=== PATIENT | male | born 1950 | race Native Hawaiian/Other Pacific Islander ===

== ENCOUNTER 2017-05-28 08:26 | Outpatient (CLI) | payer OTHER ==
[~2017-05-28 08:26] MED LIST: ACCUPRIL10 MG PO; AMBIEN5 MG PO; ASPIRIN325 M1 PO; LEVO0.0529 PO; LORA10TA3 PO; MEDROL DOSEPAK4 MG OR; SIMV10TA PO; VIAGRA100 MG PO; Z-PAK PO
[2017-05-28 09:05] LABS: PLATELET COUNT 220 K/uL (142-355)
[2017-05-28 09:52] LABS: SODIUM 135 mmol/L (136-145)
== END 2017-05-28 13:00 | disposition home or self-care (01) ==
LOC: LABW 08:26
PROVIDERS: Internal Medicine
DX: I10 Essential (primary) hypertension (principal); E03.8 Other specified hypothyroidism; E78.4 Other hyperlipidemia
CPT/HCPCS: 36415; 80053; 80061; 81000; 84439; 84443; 85027

== ENCOUNTER 2017-05-30 08:51 | Outpatient (CLI) | payer OTHER | END 2017-05-30 19:27 | disposition home or self-care (01) | LOC: US 08:51 | DX: I70.0 Atherosclerosis of aorta (principal); Z00.00 Encounter for general adult medical examination without abnormal findings ==

== ENCOUNTER 2018-03-15 10:05 | Outpatient (CLI) | payer OTHER | END 2018-03-15 19:45 | disposition home or self-care (01) | LOC: US 10:05 | DX: M79.89 Other specified soft tissue disorders (principal) ==

== ENCOUNTER 2018-07-12 06:51 | Emergency (ER) | payer OTHER ==
[~2018-07-12] VITALS: Ht 180.3 cm; Wt 108.9 kg
[2018-07-12 07:06] VITALS: TEMP 98.7
[2018-07-12 08:20] LABS: PLATELET COUNT 240 K/uL (142-355)
[2018-07-12 08:23] LABS: POTASSIUM 4.8 mmol/L (3.6-5.2)
[2018-07-12 10:35] VITALS: BP 136/88
== END 2018-07-12 10:35 | disposition home or self-care (01) ==
LOC: ED 06:51
PROVIDERS: Family Medicine
DX: N20.1 Calculus of ureter (principal)
CPT/HCPCS: 36415; 80053; 81000; 85027; 96374; 99284; J1885

== ENCOUNTER 2019-01-17 12:02 | Outpatient (CLI) | payer OTHER | END 2019-01-17 21:40 | disposition home or self-care (01) | LOC: RAD 12:02 | DX: M25.561 Pain in right knee (principal); M79.672 Pain in left foot ==

== ENCOUNTER 2019-04-08 08:18 | Outpatient (CLI) | payer OTHER | END 2019-04-08 23:59 | disposition home or self-care (01) | LOC: NM 08:18 | DX: R94.31 Abnormal electrocardiogram [ECG] [EKG] (principal); M17.0 Bilateral primary osteoarthritis of knee | CPT/HCPCS: A9500; J2785 ==

== ENCOUNTER 2019-07-02 10:53 | Emergency (ER) | payer OTHER ==
[~2019-07-02] VITALS: Ht 180.3 cm; Wt 106.6 kg
[2019-07-02 11:00] VITALS: TEMP 98.1
[2019-07-02 11:35] LABS: PLATELET COUNT 259 K/uL (142-355)
[2019-07-02 11:42] LABS: POTASSIUM 4.4 mmol/L (3.6-5.2)
[2019-07-02 12:52] VITALS: BP 135/71
== END 2019-07-02 12:52 | disposition home or self-care (01) ==
LOC: ED 10:53
PROVIDERS: Emergency Medicine
DX: R22.41 Localized swelling, mass and lump, right lower limb (principal); Z96.651 Presence of right artificial knee joint; Z79.82 Long term (current) use of aspirin; I82.401 Acute embolism and thrombosis of unspecified deep veins of right lower extremity
CPT/HCPCS: 80053; 85027; 85379; 99283; Q9963

== ENCOUNTER 2019-07-02 14:56 | Outpatient (CLI) | payer OTHER | END 2019-07-02 20:16 | disposition home or self-care (01) | LOC: CT 14:56 | DX: I82.401 Acute embolism and thrombosis of unspecified deep veins of right lower extremity (principal) | CPT/HCPCS: Q9963 ==

== ENCOUNTER 2020-01-15 13:45 | Outpatient (CLI) | payer OTHER ==
[2020-01-15 14:18] LABS: PLATELET COUNT 222 K/uL (142-355)
[2020-01-15 14:44] LABS: POTASSIUM 4.9 mmol/L (3.6-5.2)
== END 2020-01-15 22:25 | disposition home or self-care (01) ==
LOC: LAB 13:45
PROVIDERS: Internal Medicine
DX: E03.8 Other specified hypothyroidism (principal); I10 Essential (primary) hypertension
CPT/HCPCS: 80053; 80061; 81000; 84439; 84443; 85027

== ENCOUNTER 2021-05-10 09:36 | Outpatient (CLI) | payer OTHER ==
[2021-05-10 10:11] LABS: PLATELET COUNT 181 K/uL (142-355)
[2021-05-10 10:24] LABS: POTASSIUM 4.6 mmol/L (3.6-5.2)
== END 2021-05-10 19:10 | disposition home or self-care (01) ==
LOC: LABW 09:36
PROVIDERS: ATTEND Internal Medicine
DX: I10 Essential (primary) hypertension (principal)
CPT/HCPCS: 36415; 80053; 80061; 81000; 84439; 84443; 85027; 85379

== ENCOUNTER 2021-05-13 09:35 | Outpatient (CLI) | payer OTHER | END 2021-05-13 19:04 | disposition home or self-care (01) | LOC: US 09:35 | PROVIDERS: ATTEND Internal Medicine | DX: G45.9 Transient cerebral ischemic attack, unspecified (principal); R09.89 Other specified symptoms and signs involving the circulatory and respiratory systems ==

== ENCOUNTER 2021-07-13 10:14 | Outpatient (CLI) | payer OTHER | END 2021-07-13 20:20 | disposition home or self-care (01) | LOC: LABW 10:14 | PROVIDERS: ATTEND Specialist | DX: G62.89 Other specified polyneuropathies (principal); R42 Dizziness and giddiness | CPT/HCPCS: 36415; 82607; 82746; 85652; 86038 ==

== ENCOUNTER 2021-07-21 10:13 | Outpatient (CLI) | payer OTHER | END 2021-07-21 18:53 | disposition home or self-care (01) | LOC: RESP 10:13 | PROVIDERS: ATTEND Specialist | DX: G62.9 Polyneuropathy, unspecified (principal); R42 Dizziness and giddiness | CPT/HCPCS: 95885; 95910 ==

== ENCOUNTER 2022-10-09 09:13 | Outpatient (CLI) | payer OTHER | END 2022-10-09 18:56 | disposition home or self-care (01) | LOC: CT 09:13 | PROVIDERS: ATTEND Specialist | DX: R31.0 Gross hematuria (principal) ==

== ENCOUNTER 2022-11-01 11:24 | Emergency (ER) | payer OTHER ==
[~2022-11-01] VITALS: Ht 180.3 cm; Wt 83.9 kg
[2022-11-01 11:35] VITALS: BP 137/77; TEMP 98
== END 2022-11-01 14:11 | disposition home or self-care (01) ==
LOC: ED 11:24
DX: S42.032A Displaced fracture of lateral end of left clavicle, initial encounter for closed fracture (principal); W18.39XA Other fall on same level, initial encounter; Y93.K1 Activity, walking an animal; Y92.89 Other specified places as the place of occurrence of the external cause
CPT/HCPCS: 96372; 99282; J1885

== ENCOUNTER 2023-02-28 13:17 | Outpatient (CLI) | payer OTHER ==
[2023-02-28 14:33] LABS: PLATELET COUNT 202 K/uL (142-355)
[2023-02-28 14:57] LABS: POTASSIUM 5.3 mmol/L (3.6-5.2)
== END 2023-02-28 20:00 | disposition home or self-care (01) ==
LOC: LAB 13:17
PROVIDERS: ATTEND Internal Medicine
DX: Z00.00 Encounter for general adult medical examination without abnormal findings (principal); I10 Essential (primary) hypertension
CPT/HCPCS: 80053; 80061; 81000; 84439; 84443; 85027